=== PATIENT | female | born 1960 | race Caucasian/White ===

== ENCOUNTER 2018-03-25 10:12 | Emergency (ER) | payer MEDICAID ==
[2018-03-25] MEDS: KETOROLAC 60 MG INJ IM (11:05)
== END 2018-03-25 11:20 | disposition home or self-care (01) ==
LOC: FTE 10:12
DX: M54.31 Sciatica, right side (principal)
CPT/HCPCS: 96372; 99284-25

== ENCOUNTER 2018-08-25 12:49 | Emergency (ER) | payer MEDICAID ==
[2018-08-25] MEDS: KETOROLAC 30 MG INJ IM (15:34)
== END 2018-08-25 15:56 | disposition home or self-care (01) ==
LOC: FTE 15:56
DX: M72.2 Plantar fascial fibromatosis (principal); L03.031 Cellulitis of right toe; L03.032 Cellulitis of left toe
CPT/HCPCS: 96372; 99284-25